=== PATIENT | female | born 1995 | race American Indian/Alaskan Native ===

== ENCOUNTER 2017-02-25 19:31 | Emergency (ER) | payer SELFPAY | END 2017-02-26 05:46 | disposition left against medical advice (07) | LOC: ED 19:31 | DX: M54.9 Dorsalgia, unspecified (principal); R11.10 Vomiting, unspecified; R10.9 Unspecified abdominal pain; Z53.21 Procedure and treatment not carried out due to patient leaving prior to being seen by health care provider ==